=== PATIENT | male | born 1955 | race African-American/Black ===

== ENCOUNTER 2018-07-26 07:49 | Day surgery (SDC) | payer BC ==
[2018-07-24 11:52] VITALS: BMI 30.6
[2018-07-26 09:24] VITALS: TEMP 98.3
[2018-07-26 09:45] VITALS: PULSE 65
[2018-07-26 10:30] VITALS: BP 104/70
--- NOTE | 2018-07-29 14:04 | PATH ---
Surgical Pathology Report Patient Name: JUNIOR GENEVIEVE [facility]. Rec. #: [id number] /Age/Gender: 1955 (Age: 63) / M Account: [id number] Location: [facility]-ENDOSCOPY Taken: 07/26/2018 Received: 07/26/2018 Reported: 07/29/2018 Physicians: Colette Caldwell M.D. Specimen(s) Received A: RECTAL POLYP B: POLYP SIGMOID C: BX PROXIMAL TRANSVERSE COLON POLYP D: BX RIGHT COLON POLYP Clinical History Screening Postoperative diagnosis: Colon polyps Final Diagnosis A. RECTUM, POLYP, BIOPSY: HYPERPLASTIC POLYP. B. SIGMOID COLON, POLYP, BIOPSY: HYPERPLASTIC POLYP. C. PROXIMAL TRANSVERSE COLON, POLYP, BIOPSY: TUBULAR ADENOMA. D. COLON, RIGHT, POLYP, POLYPECTOMY: TUBULAR ADENOMA. Electronically Signed Francisca Griffin M.D. Gross Description A. Received in formalin, labeled "biopsy rectal polyp" are 2 disla, irregular portions of soft tissue measuring 0.4 and 0.5 cm. in greatest dimension. The specimens are submitted in toto in one cassette. B. Received in formalin, labeled "biopsy sigmoid colon polyp" are 3 disla, irregular portions of soft tissue averaging 0.4 cm. in greatest dimension. The specimens are submitted in toto in one cassette. C. Received in formalin, labeled "biopsy transverse colon polyp" is a disla, irregular portion of soft tissue measuring 0.4 cm. in greatest dimension. The specimen is submitted in toto in one cassette. D. Received in formalin, labeled "polyp right colon" is a disla, irregular portion of soft tissue measuring 0.4 cm. in greatest dimension. The specimen is submitted in toto in one cassette. 07/26/201807/26/2018
== END 2018-07-26 10:30 | disposition home or self-care (01) ==
LOC: JASU-ENDO 07:49
PROVIDERS: ATTEND Internal Medicine Gastroenterology
PROC: 0DBM8ZX Excision of Descending Colon, Via Natural or Artificial Opening Endoscopic, Diagnostic (ICD-10-PCS; 2018-07-26)
PROC: 0DBL8ZX Excision of Transverse Colon, Via Natural or Artificial Opening Endoscopic, Diagnostic (ICD-10-PCS; 2018-07-26)
PROC: 0DBN8ZX Excision of Sigmoid Colon, Via Natural or Artificial Opening Endoscopic, Diagnostic (ICD-10-PCS; 2018-07-26)
PROC: 0DBP8ZX Excision of Rectum, Via Natural or Artificial Opening Endoscopic, Diagnostic (ICD-10-PCS; 2018-07-26)
PROC: 0DBK8ZX Excision of Ascending Colon, Via Natural or Artificial Opening Endoscopic, Diagnostic (ICD-10-PCS; principal; 2018-07-26 09:45)
DX: Z86.010 Personal history of colon polyps (principal); D12.3 Benign neoplasm of transverse colon; D12.2 Benign neoplasm of ascending colon; K63.5 Polyp of colon; K62.1 Rectal polyp; I10 Essential (primary) hypertension; E78.5 Hyperlipidemia, unspecified; E03.9 Hypothyroidism, unspecified; I25.10 Atherosclerotic heart disease of native coronary artery without angina pectoris; L49.9 Exfoliation due to erythematous condition involving 90 or more percent of body surface; Z85.528 Personal history of other malignant neoplasm of kidney; Z85.46 Personal history of malignant neoplasm of prostate; Z90.5 Acquired absence of kidney; Z92.3 Personal history of irradiation
CPT/HCPCS: 88305-TC